=== PATIENT | female | born 1950 | race Caucasian/White ===

== ENCOUNTER → 2019-09-25 08:10 | Outpatient (BNVA) | payer MEDICARE, SELFPAY | PROVIDERS: Family Provider Nurse Practitioner; PCP Nurse Practitioner; Visit Provider Nurse Practitioner | DX: E55.9 Vitamin D deficiency, unspecified (principal); I10 Essential (primary) hypertension | CPT/HCPCS: 80048; 82306 ==

== ENCOUNTER 2022-04-16 17:33 | Emergency (ER) | payer MEDICARE, SELFPAY ==
[2022-04-16 17:41] VITALS: BP 192/103; PULSE 76; TEMP 36.3; O2SAT 99; BMI 26.6
--- NOTE | 2022-04-16 17:41 | XRR_ITS ---
PROCEDURE INFORMATION: Exam: XR Left Hip Exam date and time: 04/16/2022 5:53 PM Age: 71 years old Clinical indication: Hip pain; Left hip; Additional info: Injury TECHNIQUE: Imaging protocol: Radiologic exam of the Left hip. Views: 2 or 3 views hip with pelvis when performed. COMPARISON: No relevant prior studies available. FINDINGS: Bones/joints: Unremarkable. No acute fracture. Soft tissues: Unremarkable. Vasculature: One or more calcified pelvic phleboliths. XR/XR hip LT 2-3V wo/w pel* [id number] IMPRESSION: 1. No acute findings. 2. If pain persists, CT may be helpful to rule out occult pathology if clinically indicated.
--- NOTE | 2022-04-16 18:27 | CTR_ITS ---
PROCEDURE INFORMATION: Exam: CT Left Lower Extremity Without Contrast, Hip Exam date and time: 04/16/2022 7:04 PM Age: 71 years old Clinical indication: Injury or trauma; Fall; Blunt trauma; Hip; Left; Additional info: Left hip pain TECHNIQUE: Imaging protocol: CT of the Left lower extremity without contrast was performed. Exam focused on the hip. Radiation optimization: All CT scans at this facility use at least one of these dose optimization techniques: automated exposure control; mA and/or kV adjustment per patient size (includes targeted exams where dose is matched to clinical indication); or iterative reconstruction. COMPARISON: CR (PELVIS, ) 04/16/2022 5:53 PM RADIATION DOSE METRICS: Total DLP (mGy-cm): 478.95 FINDINGS: Bones/joints: Nondisplaced fractures of the inferior pubic rami and anterior acetabulum. Proximal left femur is intact without fracture. Soft tissues: Normal. CT/CT hip LT wo con* [id number] IMPRESSION: Nondisplaced fractures of the inferior pubic rami and anterior acetabulum.
--- NOTE | 2022-04-16 18:33 | CTR_ITS ---
PROCEDURE INFORMATION: Exam: CT Head Without Contrast Exam date and time: 04/16/2022 7:01 PM Age: 71 years old Clinical indication: Injury or trauma; Fall; Blunt trauma (contusions or hematomas); Without loss of consciousness TECHNIQUE: Imaging protocol: Computed tomography of the head without contrast. Radiation optimization: All CT scans at this facility use at least one of these dose optimization techniques: automated exposure control; mA and/or kV adjustment per patient size (includes targeted exams where dose is matched to clinical indication); or iterative reconstruction. COMPARISON: No relevant prior studies available. RADIATION DOSE METRICS: Total DLP (mGy-cm): 1076.68 FINDINGS: Brain: No hemorrhage or evidence of acute infarction. No mass effect. Cerebral ventricles: Mild hydrocephalus is noted. Paranasal sinuses: Visualized sinuses are unremarkable. No fluid levels. Mastoid air cells: Visualized mastoid air cells are well aerated. Bones/joints: Unremarkable. No acute fracture. Soft tissues: Unremarkable. CT/CT head wo con* [id number] IMPRESSION: No acute intracranial abnormality. Mild hydrocephalus.
--- NOTE | 2022-04-16 18:37 | ED_ITS ---
HPI - Fall General: Chief Complaint: Fall Stated Complaint: fall, left hip pain Time Seen by Provider: 04/16/22 18:23 Source: patient Mode of arrival: ambulatory Limitations: no limitations History of Present Illness: 71-year-old female who presents here with left hip pain from a fall states she fell today at 430 she did hit her head along with her left hip states she is not been able to ambulate she has pain with range of motion states her pain is currently an 8 out of 10 she denies any other injuries besides her head denies neck pain denies any other pain. Associated symptoms-after fall: Denies abdominal pain, chest pain or headache(s) Review of Systems Const: Denies: fever(s), chills, body aches or change in appetite Eyes: Denies: blurry vision or eye discomfort ENMT: Denies: throat pain or dental pain Card: Denies: chest pain Resp: Denies: dyspnea GI: Denies: abdominal pain, nausea, vomiting or diarrhea : Denies: dysuria Musc: Reports: extremity pain Skin/Breast: Denies: rash Neuro: Denies: headache(s) Psych: Denies: depression Seven/Lymph: Denies: easy bruising All/Imm: Denies: urticaria PFSH ED PFSH: Medical History (Updated 04/16/22 @ 20:38 by Mirza Lara MD) No pertinent past medical history Social History Substance/Drug Use: never Physical Exam Const: COMMON NORMALS: no acute distress, patient oriented x3 and healthy appearing HENMT: COMMON NORMALS: normocephalic HEAD & SCALP: normocephalic OTHER: contusion to forehead Eye: COMMON NORMALS: Equal, round and reactive pupils present and EOMs intact bilaterally PUPIL: Yes Equal, round and reactive pupils present Neck/C-Spine: COMMON NORMALS: full ROM and supple Chest: COMMONS NORMALS: normal inspection of the chest and normal palpation of entire chest wall Resp: COMMON NORMALS: normal respiratory effort, No retractions, No use of accessory muscles and clear to auscultation bilaterally AUSCULTATION: clear to auscultation bilaterally Cardio: COMMON NORMALS: regular rate, regular rhythm and No murmurs present (Cardio) RATE: regular rate RHYTHM: regular rhythm GI: COMMON NORMALS: Normal to inspection, nondistended, normoactive bowel sounds present, Soft to palpation, non-tender and no masses PALPATION: Yes Soft to palpation Extremity: NARRATIVE EXTREMITY EXAM: tenderness to left hip and pain with rom Neuro: COMMON NORMALS: patient oriented x3, moves all extremities and no focal motor deficits Psych: COMMON NORMALS: mental status grossly normal, Normal thought process present and cooperative THOUGHT PROCESS: Normal thought process present Skin: COMMON NORMALS: no rashes or lesions noted and no wounds GENERAL SKIN EXAM: no rashes or lesions noted Course Vital Signs: Vital signs: Vital Signs Temperature 97.4 F L 04/16/22 17:41 Pulse Rate 76 04/16/22 17:41 Respiratory Rate 16 04/16/22 18:43 Blood Pressure 192/103 04/16/22 17:41 Pulse Oximetry 99 04/16/22 17:41 Oxygen Delivery Me thod 04/16/22 17:41 MDM - Fall Medical Decision Making Patient presents here with an acetabular and rami fracture from a fall. I spoke to orthopedics Dr. Luong who reviewed films who instructed patient be weightbearing as tolerated and follow-up with him does not require surgery I did speak to patient I did offer her admission for pain control she states she feels much improved would like to go home we will get her a walker she is to only weight-bear as tolerated we will prescribe her pain meds and she is to follow-up with orthopedics return if worsening she understands agrees to plan. Lab Data 04/16/22 18:46 04/16/22 18:46 Radiology Impressions Hip/Pelvis X-Ray 04/16/22 17:41 IMPRESSION: 1. No acute findings. 2. If pain persists, CT may be helpful to rule out occult pathology if clinically indicated. Hip CT 04/16/22 18:27 IMPRESSION: Nondisplaced fractures of the inferior pubic rami and anterior acetabulum. Head CT 04/16/22 18:33 IMPRESSION: No acute intracranial abnormality. Mild hydrocephalus. Laboratory Results WBC 10.8 10^3/uL (4.0-10.0) H 04/16/22 18:46 RBC 5.27 10^6/uL (4.1-5.3) 04/16/22 18:46 Hgb 14.2 g/dL (11.5-15.3) 04/16/22 18:46 Hct 44.6 % (37.0-47.0) 04/16/22 18:46 MCV 84.6 fl (81-99) 04/16/22 18:46 MCH 26.9 pg (28.0-34.0) L 04/16/22 18:46 MCHC 31.8 g/dL (30.0-36.0) 04/16/22 18:46 RDW 17.9 % (12.1-15.1) H 04/16/22 18:46 Plt Count 214 10^3/cmm (130-400) 04/16/22 18:46 MPV 12.9 fL (7.4-10.4) H 04/16/22 18:46 Neut % (Auto) 71.1 % 04/16/22 18:46 Lymph % (Auto) 19.5 % 04/16/22 18:46 Ceiba % (Auto) 7.0 % 04/16/22 18:46 Eos % (Auto) 0.6 % 04/16/22 18:46 Baso % (Auto) 0.6 % 04/16/22 18:46 Neut # (Auto) 7.69 10^3/uL (1.8-7.7) 04/16/22 18:46 Lymph # (Auto) 2.1 10^3/uL (0.8-4.8) 04/16/22 18:46 Ceiba # (Auto) 0.8 10^3/uL (0.2-0.9) 04/16/22 18:46 Eos # (Auto) 0.1 10^3/uL (0.0-0.8) 04/16/22 18:46 Baso # (Auto) 0.1 10^3/uL (0.0-0.1) 04/16/22 18:46 Nucleated RBC % (auto) 0 % 04/16/22 18:46 Nucleated RBCs # 0.0 /100WBC 04/16/22 18:46 Sodium 136 mmol/L (136-145) 04/16/22 18:46 Potassium 3.8 mmol/L (3.5-5.1) 04/16/22 18:46 Chloride 98 mmol/L (98-107) 04/16/22 18:46 Carbon Dioxide 26 mmol/L (22-29) 04/16/22 18:46 Anion Gap 15.8 (5-19) 04/16/22 18:46 BUN 20 mg/dL (8-23) 04/16/22 18:46 Creatinine 0.6 mg/dL (0.5-0.9) 04/16/22 18:46 GFR Calculation 98.8 mL/min (90-130) 04/16/22 18:46 Glucose 105 mg/dL (65-115) 04/16/22 18:46 Calculated Osmolality 285 mOsm/kg (285-295) 04/16/22 18:46 Calcium 9.8 mg/dL (8.5-10.5) 04/16/22 18:46 Total Bilirubin 0.4 mg/dL (0.15-1.2) 04/16/22 18:46 AST 17 U/L (0-32) 04/16/22 18:46 ALT 21 U/L (0-33) 04/16/22 18:46 Alkaline Phosphatase 89 U/L (35-105) 04/16/22 18:46 Total Protein 7.3 g/dL (6.6-8.7) 04/16/22 18:46 Albumin 4.0 g/dL (3.5-5.2) 04/16/22 18:46 Globulin 3.3 g/dL (1.3-4.6) 04/16/22 18:46 Discharge Plan Discharge Patient Disposition: Home Clinical Impression: Closed fracture of left inferior pubic ramus Acetabulum fracture, left Qualifiers: Encounter type: initial encounter Sublocation of acetabulum: anterior wall Fracture type: closed Fracture alignment: nondisplaced Qualified Code(s): S32.415A - Nondisplaced fracture of anterior wall of left acetabulum, initial encounter for closed fracture Condition: Stable Prescriptions: New hydrocodone-acetaminophen 5-325 mg tablet 1 tab PO Q6H PRN (Reason: pain) Qty: 14 0RF Discharge Orders: Discharge ED (Routine); Ordered 04/16/22 Ordered By: Mirza Lara Other Ambulatory Orders: DME: Moy (Order) Location: None Selected Ordered By: Mirza Lara Referrals: Sandrita Srinivasan, [employer] [Primary Care Provider] - Ji Luong MD [Physician] - 1-3 days Discharge Diet: Advance as tolerated Discharge Activity: Resume usual activity Patient Instructions: Pelvic Fracture (ED) Coding Level of Care Code ED Sample Maker Original for Chg Fwd Exam Comprehensive
[2022-04-16 18:43] VITALS: RESP 16
[2022-04-16] MEDS: morphine 4 mg/mL SDV 1 mL IVP (18:43)
[2022-04-16] MEDS: ondansetron 2 mg/ML SDV 2 mL 4 MG IVP (18:43)
[2022-04-16 19:00] LABS: Basophils # 0.1 10^3/uL (0.0-0.1); Basophils % 0.6 %; Eosinophils # 0.1 10^3/uL (0.0-0.8); Eosinophils % 0.6 %; Hematocrit 44.6 % (37.0-47.0); Hemoglobin 14.2 g/dL (11.5-15.3); Lymphocytes # 2.1 10^3/uL (0.8-4.8); Lymphocytes % 19.5 %; Mean Corpuscular HGB Conc 31.8 g/dL (30.0-36.0); Mean Corpuscular Hemoglobin 26.9 pg (28.0-34.0); Mean Corpuscular Volume 84.6 fl (81-99); Mean Platelet Volume 12.9 fL (7.4-10.4); Monocytes # 0.8 10^3/uL (0.2-0.9); Neutrophils # 7.69 10^3/uL (1.8-7.7); Neutrophils % 71.1 %; Nucleated Red Blood Cells % 0 %; Platelet Count 214 10^3/cmm (130-400); Red Blood Count 5.27 10^6/uL (4.1-5.3); Red Cell Distribution Width 17.9 % (12.1-15.1); White Blood Count 10.8 10^3/uL (4.0-10.0)
[2022-04-16 19:27] LABS: Alanine Aminotransferase 21 U/L (0-33); Alkaline Phosphatase 89 U/L (35-105); Anion Gap 15.8 (5-19); Aspartate Amino Transferase 17 U/L (0-32); Blood Urea Nitrogen 20 mg/dL (8-23); Calcium 9.8 mg/dL (8.5-10.5); Carbon Dioxide 26 mmol/L (22-29); Chloride 98 mmol/L (98-107); Creatinine Clr Calc Pharmacy 62.9531; Globulin 3.3 g/dL (1.3-4.6); Glomerular Filtration Rate 98.8 mL/min (90-130); Glucose 105 mg/dL (65-115); Osmolality Calculated 285 mOsm/kg (285-295); Potassium 3.8 mmol/L (3.5-5.1); Sodium 136 mmol/L (136-145); Total Bilirubin 0.4 mg/dL (0.15-1.2); Total Protein 7.3 g/dL (6.6-8.7)
[2022-04-16] MEDS: HYDROcodone-acetaminophen 5-325 mg Tablet 2 TAB PO (21:40)
[2022-04-16 22:03] VITALS: PULSE 71; RESP 16; O2SAT 99
--- NOTE | 2022-04-17 09:35 | DCPLANNER ---
Addendum entered by Catie Saravia 05/10/22 14:17: channel account manager received the following message from the ortho clinic regarding follow up appointment: tried to call pt, left vm Original Note: channel account manager had message to schedule a follow up appointment for patient with ortho. channel account manager sent patients information to the front office staff at ortho. Patients information will be printed and reviewed. Clinic will call patient with appointment information.
== END 2022-04-16 21:45 | disposition home or self-care (01) ==
PROVIDERS: Emergency Provider Emergency Medicine; PCP Nurse Practitioner
DX: S32.415A Nondisplaced fracture of anterior wall of left acetabulum, initial encounter for closed fracture (principal); S32.592A Other specified fracture of left pubis, initial encounter for closed fracture; W19.XXXA Unspecified fall, initial encounter
CPT/HCPCS: 70450; 73502; 73700; 80053; 85025; 96374; 96375; 99285; J2270; J2405

== ENCOUNTER → 2022-11-19 15:51 | Outpatient (BNVA) | payer MEDICARE, SELFPAY | PROVIDERS: PCP Nurse Practitioner; Visit Provider Internal Medicine | DX: E87.6 Hypokalemia (principal) | CPT/HCPCS: 80048 ==

== ENCOUNTER → 2023-10-23 13:26 | Outpatient (BNVA) | payer MEDICARE, SELFPAY | PROVIDERS: PCP Nurse Practitioner; Visit Provider Nurse Practitioner Family | DX: R60.9 Edema, unspecified (principal); J01.00 Acute maxillary sinusitis, unspecified; J40 Bronchitis, not specified as acute or chronic | CPT/HCPCS: 80053; 83880; 85025 ==

== ENCOUNTER → 2023-11-04 11:01 | Outpatient (BNVA) | payer MEDICARE, SELFPAY | PROVIDERS: PCP Nurse Practitioner; Visit Provider Nurse Practitioner Family | DX: R79.89 Other specified abnormal findings of blood chemistry (principal); R60.9 Edema, unspecified; I50.9 Heart failure, unspecified | CPT/HCPCS: 80053; 83880; 85025 ==

== ENCOUNTER → 2024-01-09 16:52 | Outpatient (BNVA) | payer MEDICARE, SELFPAY | PROVIDERS: PCP Nurse Practitioner; Visit Provider Nurse Practitioner Family | DX: D64.9 Anemia, unspecified (principal) | CPT/HCPCS: 85007; 85025 ==